=== PATIENT | female | born 1950 | race Caucasian/White ===

== ENCOUNTER → 2024-01-10 08:45 | Outpatient (CLI) | payer MEDICARE, OTHER, SELFPAY ==
--- NOTE | 2024-01-10 09:30 | EKG_ITS ---
[address] [id number] [place] [address] Test Date: 2024-01-10 Pat Name: Fabiana Delgado Department: Room: Gender: Female Digital Marketing Officer: : 1950 Requested By: Order Number: [id number] Reading MD: Davin Davis Measurements Intervals [place] Rate: 69 P: 63 [place]: 164 QRS: 45 QRSD: 72 T: 41 QT: 372 QTc: 398 Interpretive Statements Normal sinus rhythm Electronically Signed On 01-10-2024 16:21:34 PDT by Davin Daivs
[2024-01-10 09:56] LABS: Add Manual Diff / Slide Review NO; Basophils Absolute Auto 0 /uL (0-100); Basophils Percent Auto 0.8 % (0-2); Eosinophils Absolute Auto 200 /uL (0-450); Eosinophils Percent Auto 3.4 % (2-4); Hematocrit 39.9 % (36-46); Hemoglobin 13.3 g/dL (12.0-16.0); Lymphocytes Absolute Auto 1800 /uL (1100-4500); Lymphocytes Percent Auto 33.8 % (25-40); Mean Corpuscular HGB Conc 33.4 % (30-36); Mean Corpuscular Hemoglobin 31.1 PG (26-34); Mean Corpuscular Volume 93.2 fL (80-100); Monocytes Absolute Auto 500 /uL (0-900); Monocytes Percent Auto 8.9 % (3-14); Neutrophils Absolute Auto 2800 /uL (1500-7000); Neutrophils Percent Auto 53.1 % (50-75); Platelet Count 204 X10^3/uL (150-400); Red Blood Cell Count 4.28 X10^6/uL (4.0-5.2); White Blood Cell Count 5.3 X10^3/uL (4.5-11.0)
[2024-01-10 10:13] LABS: BUN Creatinine Ratio 20.2 (6-22); Blood Urea Nitrogen 19 mg/dL (7-17); Calcium 10.1 mg/dL (8.4-10.2); Carbon Dioxide 31 mmol/L (22-32); Chloride 105 mmol/L (98-107); Estimated Glomerular Filt Rate > 60 mL/min (>60); Glucose 92 mg/dL (80-110); HEMOLYSIS < 15 (0-50); Potassium 4.4 mmol/L (3.4-5.1); Sodium 139 mmol/L (137-145)
== END ==
LOC: RESP 08:51
PROVIDERS: PCP Physician Assistant Medical; Referring Provider Orthopaedic Surgery; Visit Provider Orthopaedic Surgery
DX: Z01.818 Encounter for other preprocedural examination (principal); Z01.812 Encounter for preprocedural laboratory examination
CPT/HCPCS: 36415; 80048; 85025; 93005

== ENCOUNTER 2024-01-16 11:12 | Day surgery (SDC) | payer MEDICARE, OTHER, SELFPAY ==
[2024-01-14 08:46] VITALS: BMI 26.4
[2024-01-16] VITALS (14 sets, daily range): BP systolic 98–169; BP diastolic 48–91; PULSE 18–91; RESP 13–18; TEMP 36.2–37.8; O2SAT 93–100; BMI 26.4; BMI 27.9
--- NOTE | 2024-01-16 | DI.RAD.S_ITS ---
PROCEDURE: XR SHOULDER RT MIN 2V INDICATIONS: RIGHT PROXIMAL HUMERUS SURGERY TECHNIQUE: Intraoperative views of the shoulder were acquired. COMPARISON: Ailin Ringoes KELLY Perez, XR SHOULDER 1 VIEW RIGHT, 11/13/2023, 15:55. FINDINGS: Bones: Intraoperative images during ORIF of a proximal humeral fracture. Alignment is improved and hardware appears intact. IMPRESSION: Intraoperative images during ORIF of a proximal humeral fracture. Alignment is improved and hardware appears intact. Dictated by: Billy Turner M.D. on 01/16/2024 at 17:15 Approved by: Billy Turner M.D. on 01/16/2024 at 17:15
--- NOTE | 2024-01-16 12:29 | PM.PREOP ---
Pre-operative Note Interval Note History & Physical reviewed/Exam performed by Physician: Yes Changes to H&P: No
[2024-01-16] MEDS: LACTATED RINGERS 1,000 ML 42 ML IV (12:30)
[2024-01-16] MEDS: CEFAZOLIN 2 GM/100 ML PREMIX 100 ML IV ×3 (13:00→23:13)
[2024-01-16] MEDS: TRANEXAMIC ACID 1,000 MG VIAL 1000 MG INJ (13:05)
--- NOTE | 2024-01-16 13:10 | SUR.OPER ---
Beach chair with Maquet shoulder positioner. Lower body on padded OR bed. Head in foam padded head cradle, secured with straps. Non-operative arm secured <90 degrees abduction. Pillow under knees. Safety belt at thigh. Cloth tape over blanket over lower legs.
[2024-01-16] MEDS: BUPIVACAINE 0.25% (PF) 30 ML, EPINEPHrine 0.15 MG INJ (13:15)
--- NOTE | 2024-01-16 16:44 | PM.OP.1 ---
Operative Date/Time/Diagnoses Date of procedure: 01/16/24 Time of procedure: 16:44 Pre-op diagnosis: Right proximal humerus nonunion Post-op diagnosis: same Procedure & Clinicians Procedure: 1. ORIF right proximal humerus nonunion 2. Operative fixation midshaft humerus fracture Same procedure as scheduled: No Indications: Indications: This is a 73-year-old female who sustained a fall hurting a proximal humerus fracture that was treated nonoperatively. After over 6 months she developed a nonunion. We discussed operative and nonoperative treatment options. Her options include continued conservative management, ORIF and a reverse total shoulder arthroplasty. After careful consideration she wished to go forward with operative fixation. Risks and benefits of surgery were discussed again including the risk of infection, damage to internal structures, bleeding, nerve injury, instability, need for revision surgery, blood clots, anesthesia and . No guarantees were made regarding outcomes. Patient expressed understanding and accepted these risks and wished to go forward with surgery and consent was signed. Surgeon: Abraham Umanzor Medicaid Business Analyst: Jennifer Julian Anesthesia Type: General Operative Notes Findings: Findings: Three-part proximal humerus fracture including the greater tuberosity and surgical neck Closure Type: primary Specimen(s): none sent Prosthetic devices, grafts, tissues, transplants, or devices: Implants: Acumed proximal humerus locking plate Serrano and Nephew 3.5 mm small frag plate, 8 hole Estimated Blood Loss (mL): 200 Blood products transfused: none Procedure in detail: Patient was seen in the preoperative holding area. The left upper extremity was examined and marked with my initials. We again went over the risks and benefits of surgery and consent was signed. The patient was brought back to the operating room and placed in a beach chair position. All bony prominences were padded. 2 g of Ancef and 1g of TXA were given. The left upper extremity was prepped and draped in the standard sterile fashion. A time-out was then performed in my initials were again confirmed on the left upper extremity. A standard deltopectoral approach was performed. The cephalic vein was encountered and moved lateral and protected throughout the remainder of the case. The clavipectoral fascia was incised and the conjoined tendon was retracted medially. The subacromial space and deltoid were freed of all adhesions. The axillary nerve was identified and protected through the entirety of the procedure. At this point it was noted that there was a definitive proximal humerus fracture nonunion. The fracture site was debrided. Fracture was reduced and held in place. An Acumed proximal humeral locking plate was then fashioned and fixed to the bone just lateral to the bicipital groove with multiple locking screws in the proximal head and bicortical screws in the humeral shaft. DBM and bone graft was placed into the space between the shaft and the humerus and impacted. Shoulder was then taken through range of motion under multiple fluoroscopic views to confirm adequate hardware placement and fracture reduction, unfortunately during internal rotation, there was a fracture of the humeral shaft at the level of the plate. This reason, the incision was extended into an anterior aggregate approach between the deltoid and the pack insertion retracting the biceps medially and splitting the brachialis. An 8 hole small frag 3.5 mm plate was then selected and placed while the fracture was held reduced with a reduction clamp. For proximal and 3 distal screws were placed. Screw lengths and fracture reduction was assessed with fluoroscopy. Wounds were thoroughly irrigated. The brachialis was closed over plate with Ethibond The skin were then closed with 2-0 Vicryl and james. Sterile dressings were placed the patient was then brought to the postanesthesia care unit. Assisting participation: This operation could not have been safely performed (without compromising the technical results or length of the procedure) without the assistance of a skilled assembler surgical garment. The assembler surgical garment was medically necessary for proper positioning, retraction and manipulation of instruments, proper exposure, graft prep, and manipulation of tissue. Complications: none Post-operative Condition: stable Disposition: PACU Plan for aftercare: Postoperatively: Sling for comfort for 2 weeks then begin gentle rxbqa-fr-[id number] exercises with physical therapy. Aquacel dressing to remain on for 2 weeks. This will be removed in clinic as well as the underlying james. Okay to shower with soap and water running over top of the dressing. NOTE: If water gets underneath the dressing, please remove the dressing and replace with clean dry 4x4s.
[2024-01-16] MEDS: ONDANSETRON 4 MG/2 ML INJ IV (16:55)
[2024-01-16] MEDS: LACTATED RINGERS 1,000 ML 100 ML IV (18:23)
[2024-01-16] MEDS: ASPIRIN EC 81 MG TABLET PO (21:00)
[2024-01-16] MEDS: IBUPROFEN 400 MG TABLET PO ×2 (21:00→23:13)
[2024-01-16] MEDS: DOCUSATE 100 MG CAPSULE PO (21:01)
[2024-01-16] MEDS: ATORVASTATIN 20 MG TABLET 40 MG PO (21:01)
[2024-01-16] MEDS: ACETAMINOPHEN 325 MG TABLET 650 MG PO (23:13)
[2024-01-17 00:30] VITALS: BP 113/69; PULSE 80; RESP 18; TEMP 37.3; O2SAT 94
[2024-01-17] MEDS: OXYCODONE IR 5 MG TABLET PO ×2 (02:12→06:49)
[2024-01-17] MEDS: IBUPROFEN 400 MG TABLET PO ×2 (05:01→09:40)
[2024-01-17] MEDS: ACETAMINOPHEN 325 MG TABLET 650 MG PO (05:01)
[2024-01-17] MEDS: CEFAZOLIN 2 GM/100 ML PREMIX 100 ML IV (06:02)
[2024-01-17 06:26] LABS: Add Manual Diff / Slide Review NO; Basophils Absolute Auto 100 /uL (0-100); Basophils Percent Auto 0.4 % (0-2); Eosinophils Absolute Auto 0 /uL (0-450); Eosinophils Percent Auto 0.1 % (2-4); Hematocrit 30.6 % (36-46); Hemoglobin 10.3 g/dL (12.0-16.0); Lymphocytes Absolute Auto 2200 /uL (1100-4500); Lymphocytes Percent Auto 17.7 % (25-40); Mean Corpuscular HGB Conc 33.6 % (30-36); Mean Corpuscular Hemoglobin 31.1 PG (26-34); Mean Corpuscular Volume 92.5 fL (80-100); Monocytes Absolute Auto 1300 /uL (0-900); Monocytes Percent Auto 10.7 % (3-14); Neutrophils Absolute Auto 8700 /uL (1500-7000); Neutrophils Percent Auto 71.1 % (50-75); Platelet Count 141 X10^3/uL (150-400); Red Blood Cell Count 3.31 X10^6/uL (4.0-5.2); Red Cell Distribution Width 12.9 % (11.6-14.8); White Blood Cell Count 12.3 X10^3/uL (4.5-11.0)
[2024-01-17 06:38] LABS: BUN Creatinine Ratio 22.6 (6-22); Blood Urea Nitrogen 19 mg/dL (7-17); Calcium 8.9 mg/dL (8.4-10.2); Carbon Dioxide 24 mmol/L (22-32); Chloride 106 mmol/L (98-107); Estimated Glomerular Filt Rate > 60 mL/min (>60); Glucose 119 mg/dL (80-110); HEMOLYSIS 18 (0-50); Potassium 4.1 mmol/L (3.4-5.1); Sodium 134 mmol/L (137-145)
--- NOTE | 2024-01-17 07:01 | PM.DS.1 ---
History of Present Illness History of Present Illness Date Patient Seen: 01/17/24 Time Patient Seen: 07:01 Chief complaint: SDC Narrative: Operative Date/Time/Diagnoses Date of procedure: 01/16/24 Time of procedure: 16:44 Pre-op diagnosis: Right proximal humerus nonunion Post-op diagnosis: same Procedure & Clinicians Procedure: 1. ORIF right proximal humerus nonunion 2. Operative fixation midshaft humerus fracture Same procedure as scheduled: No Indications: Indications: This is a 73-year-old female who sustained a fall hurting a proximal humerus fracture that was treated nonoperatively. After over 6 months she developed a nonunion. We discussed operative and nonoperative treatment options. Her options include continued conservative management, ORIF and a reverse total shoulder arthroplasty. After careful consideration she wished to go forward with operative fixation. Risks and benefits of surgery were discussed again including the risk of infection, damage to internal structures, bleeding, nerve injury, instability, need for revision surgery, blood clots, anesthesia and . No guarantees were made regarding outcomes. Patient expressed understanding and accepted these risks and wished to go forward with surgery and consent was signed. Surgeon: Abraham Umanzor Etl Data Architect: Jennifer Julian Anesthesia Type: General Operative Notes Findings: Findings: Three-part proximal humerus fracture including the greater tuberosity and surgical neck Closure Type: primary Specimen(s): none sent Prosthetic devices, grafts, tissues, transplants, or devices: Implants: Acumed proximal humerus locking plate Serrano and Nephew 3.5 mm small frag plate, 8 hole Estimated Blood Loss (mL): 200 Blood products transfused: none Discharge Providers Provider Discharge Date: 01/17/24 Primary care physician: Radha Meier PA-C Consults: 01/14/24 09:49 Consult to Anesthesiology Routine Comment: Consulting Provider: Anesthesiologist Reason for consultation: EFREN Perez re: Vascular 01/16/24 10:10 Consult to Anesthesiology Routine Comment: Consulting Provider: Anesthesiologist Reason for consultation: Post operative pain managment Has provider been notified: No 01/16/24 16:33 Consult to Discharge Planning Routine Comment: Consult to Occupational Therapy Evaluate & Treat Comment: Physician Instructions: Evaluate and treat Consult to Physical Therapy Evaluate & Treat Comment: Physician Instructions: Evaluate and Treat Discharge provider: Ana Weiss PA-C Summary Hospital Course Discharge Diagnosis: Right proximal humerus nonunion; s/p ORIF of right proximal humerus and midshaft fractures Hospital Course: Ms Delgado's hospital course was unremarkable. On the morning of POD# 1, she was feeling well and wanted to go home. She was eating and voiding without difficulty and her pain was well-controlled with oral medication. She has adequate assistance at home. Exam Vital Signs (past 8 hours): - 01/17/24 00:30 Temperature 99.1 F Pulse Rate 80 Respiratory Rate 18 Blood Pressure 113/69 Pulse Oximetry 94 Oxygen Flow Rate 0 Oxygen Delivery Method Room Air Oxygen Flow Rate 0 Narrative Exam Narrative: Minimal swelling at this time. Aquacel dressing CDI. Pt able to wiggle fingers, move wrist and elbow. Hand warm, sensation to touch intact throughout UE. Objective Labs 01/17/24 06:11 01/17/24 06:11 Labs: Laboratory Results - last 24 hr 01/17/24 06:11 WBC 12.3 H RBC 3.31 L Hgb 10.3 L Hct 30.6 L MCV 92.5 MCH 31.1 MCHC 33.6 RDW 12.9 Plt Count 141 L Neut % (Auto) 71.1 Lymph % (Auto) 17.7 L Tyrrell % (Auto) 10.7 Eos % (Auto) 0.1 L Baso % (Auto) 0.4 Neut # (Auto) 8700 H Lymph # (Auto) 2200 Tyrrell # (Auto) 1300 H Eos # (Auto) 0 Baso # (Auto) 100 Sodium 134 L Potassium 4.1 Chloride 106 Carbon Dioxide 24 BUN 19 H Creatinine 0.84 Estimated GFR > 60 BUN/Creatinine Ratio 22.6 H Glucose 119 H Calcium 8.9 PFSH Medical History (Updated 01/14/24 @ 08:58 by Viry Lo RN) Septicemia due to Escherichia coli (E. coli) Syncope and collapse Carotid artery disease Hypomagnesemia Hypercalcemia CVA (cerebral vascular accident) Vitamin B12 deficiency Anemia Hx of shortness of breath Irregular heartbeat Migraine headache Allergic rhinitis HTN (hypertension) FH: colonic polyps GERD (gastroesophageal reflux disease) Renal calculus DDD (degenerative disc disease) Depression Adnexal mass Tendinitis of shoulder Surgical History (Updated 01/14/24 @ 09:25 by Viry Lo RN) Hx of tonsillectomy History of right-sided carotid endarterectomy (2021) History of bronchoscopy Hx of appendectomy Hx of abdominal surgery Social History household members: spouse Smoking Status: Former smoker alcohol intake: current Discharge Assessment & Plan Assessment and Plan Assessment: Right proximal humerus nonunion; s/p ORIF of right proximal humerus and midshaft fractures Plan of Treatment: Discharge home. Sling for comfort; may have off for hygiene. PT to start in 2 weeks for gentle ROM exercises. Increase ASA to BID x 4 weeks to prevent DVT, then can return to once daily. F/u in office as scheduled. Discharge Plan Discharge Plan Patient Disposition: Home Provider Discharge Comment: Pt has pain med rxs at home. Increase aspirin 81mg to BID x 4 weeks after surgery. Discharge orders & Medications Discharge Orders: Discharge (Order); Ordered 01/17/24 Ordered By: Ana Weiss Prescriptions: Continued atorvastatin 40 mg Tablet 40 mg PO BEDTIME sertraline [Zoloft] 100 mg Tablet 100 mg PO DAILY fexofenadine 180 mg Tablet 180 mg PO DAILY albuterol sulfate [ProAir HFA] 90 mcg/actuation Hfa Aerosol Inhaler 2 puff INHALATION Q4-6H PRN (Reason: Shortness Of Breath) fluticasone propionate [Flonase] 50 mcg/actuation [place],Suspension 2 spray INTRANASAL DAILY Rx Instructions: administer into each nostril aspirin 81 mg Capsule 81 mg PO DAILY Follow up/Referrals: Radha Meier PA-C [Primary Care Provider] - Abraham Umanzor MD [Physician] - As previously scheduled Diet/Activity/Treatments Diet: Diet as Tolerated Activity: Sling for comfort for 2 weeks then begin gentle [id number]-[id number]-[id number] exercises with physical therapy. No weightbearing to right arm. Cold/Heat Therapy: Ice to shoulder as needed for pain. Skin/Wound/Dressing Care Report to your healthcare provider any signs of infection, such as:: chills, fever, night sweats, unusual drainage and unusual redness Dressing: May shower; leave dressing in place until follow up in office. Call the office if the dressing becomes saturated inside. Swelling of the arm from the elbow to the hand is normal and expected; it usually gets worse about a week after surgery and then will start to decrease. Visit Report/Discharge Packet Instructions: DI for Open Reduction Internal Fixation Surgery, DI for Prescription Opioid Use Stand Alone Forms: Patient Portal/API, Surgery Discharge Discharge Data Primary Care Provider: Radha Meier Attending Provider: Abraham Umanzor Quality VTE Deep Vein Thrombosis/Pulmonary Embolism Present on Admission: No
[2024-01-17 08:55] VITALS: BP 124/56; PULSE 74; RESP 17; TEMP 36.9; O2SAT 94
--- NOTE | 2024-01-17 09:14 | PC.NURSE ---
Patients blood pressure down to 66/35, and she had an emesis soon after. She was working and transferring with O.T. Blood pressure rechecked and up to 119/61. EFREN Perez Beh aware of situation, awaiting reply. She is back to bed and is resting comfortably. R.total shoulder dressing aquacel is cdi with patients r.shoulder sling in place.
--- NOTE | 2024-01-17 09:17 | OT.IP.EVAL ---
Current Diagnoses Other nondisplaced fracture of upper end of left humerus, initial encounter for closed fracture (01/16/24) Surgery Performed Operation Date: 01/16/24 12:45 Actual Procedures p Operative fixation right proximal humerus, nonunion and humerus shaft fracture(Right) - Abraham Umanzor MD Past Medical History (Last Updated 01/14/24 @ 08:58 by Viry Lo, RN) Adnexal mass Allergic rhinitis Anemia Carotid artery disease CVA (cerebral vascular accident) DDD (degenerative disc disease) Depression FH: colonic polyps GERD (gastroesophageal reflux disease) HTN (hypertension) Hx of shortness of breath Hypercalcemia Hypomagnesemia Irregular heartbeat Migraine headache Renal calculus Septicemia due to Escherichia coli (E. coli) Syncope and collapse Tendinitis of shoulder Vitamin B12 deficiency Surgical History (Last Updated 01/14/24 @ 09:25 by Viry Lo, RN) History of bronchoscopy History of right-sided carotid endarterectomy (2021) Hx of abdominal surgery Hx of appendectomy Hx of tonsillectomy Occupational Therapy Inpatient Evaluation/Re-Eval M1 PT/OT-IP Prior Functional Status Start: 01/17/24 10:38 Freq: NEEDED Status: Active Protocol: Document 01/17/24 10:39 [facility] (Rec: 01/17/24 11:04 [facility] [id number]) Medical Review Prior Functional Status Communication Independent Mobility and Gait Independent Activities of Daily Living and IADL's Independent and pt's to assist for IADL needs as needed. Prior Functional Level (Other details) Pt has a fall in April and treated non operatively and never healed and therefore now s/P ORIF Right proximal humerus Social History Household Members spouse Living Arrangements House Number of Floors (Floors) One Floor Number of Stairs To Enter/Railing? No steps to enter. Home Environment High Toilet,Walk in Shower Home Equipment Shower Seat with Backrest,Hand Held Shower Additional Social History Comment Pt has suction cup grab bar that she can use if needed. M2 OT-IP Current Condition Start: 01/17/24 10:38 Freq: Status: Active Protocol: Document 01/17/24 10:39 [facility] (Rec: 01/17/24 11:04 [facility] [id number]) Occupational Therapy Current Condition Current Condition Evaluation Date 01/17/24 Treatment Diagnosis S/P R ORIF Right Proximal Humerus non union fx Diagnosis Onset Date 01/16/24 Weight Bearing Status Weight Bearing Status Non-Weight Bearing Allowed Weight Bearing Amount (enter % RUE NWB or #) (%) M3 OT- IP Subjective and Pain Start: 01/17/24 10:38 Freq: Status: Active Protocol: Document 01/17/24 10:39 [facility] (Rec: 01/17/24 11:04 [facility] [id number]) OT- Subjective Occupational Therapy Visit Type Type Initial Evaluation Visit Start Time 08:40 Visit Stop Time 09:17 Occupational Therapy Visit Comments Patient Comments Pt agreed to get up. Pt not wanting to wear the abduction pillow on the sling, therefore assist to adjust the strapping for the sling with just the envelop. Sling to be worn for comfort and taken off for hygiene needs. Patient/Caregiver Goals To go home. OT Pain Assessment Pain When Pain Assessed At Rest Pain Present Pain Present Pain Reported Location Right Arm Intensity 4 Scale Used Numeric (0 - 10) M4 OT- IP ADL's Start: 01/17/24 10:38 Freq: Status: Active Protocol: Document 01/17/24 10:39 [facility] (Rec: 01/17/24 11:04 [facility] [id number]) OT [id number] Comments OT Self-Feeding Comments Not at meal time. OT ADL-Grooming General Evaluation Grooming Ability Standby Assistance Areas Needing Assistance Retrieving/Set-up of Grooming Items Comments OT Grooming Comments Able to wash her face after set-up. OT ADL-Oral Care Comments Oral Care Comments Pt able to rinse her mouth out with mouthwash. OT ADL-Dressing General Eval Upper Body Dressing Ability Maximum Assistance Areas Needing Assistance Orthosis/Prosthesis Comments OT Dressing Comments Able to readjust her sling. Spoke on UB dressing needs to dress her RUE while leaning forwards first and take out last. Not able to actually complete getting pt dressed as pt got naueous with emesis. Pt's will be able to assist her at home. OT ADL-Toileting Comments OT Toileting Comments Pt states has already been up to the bathroom earlier. OT ADL-Bathing Comments OT Bathing Comments Suggested to cover the dressing for showering needs. To inspect the bandage to ensure that there is proper sealing. M5 OT- IP IADL's Start: 01/17/24 10:38 Freq: Status: Active Protocol: Document 01/17/24 10:39 [facility] (Rec: 01/17/24 11:04 [facility] [id number]) OT-Instrumental Activities of Daily Living Deficits IADL Deficits Identified Deficits Home Safety Awareness Awareness of Need for Assistance at Home Good Awareness Ability to Problem Solve Emergency Able to Problem Solve Situations Meal Preparation Meal Preparation Caregiver Provides Assist Clinical Applications Specialist Clinical Applications Specialist Caregiver Provides Assist M6 OT- IP Functional Cognition Start: 01/17/24 10:38 Freq: Status: Active Protocol: Document 01/17/24 10:39 [facility] (Rec: 01/17/24 11:04 [facility] [id number]) Cognitive Factors Limiting Selfcare Function Cognitive Ability Level of Alertness Alert Patient Orientation Name,Age,Birthday,Month,Date, Year,Day of Week,Place, Situation Attention Span Ability Capable of Focused Attention, Capable of Sustained Attention Ability to Follow Commands Able to Follow Multi-Step Commands Memory Description No Deficits Noted Safety Awareness No Deficits Noted Cognitive Comments Cognitive Assessment Comments Pt is intact. OT- Vision and Hearing OT- Hearing Assessment OT- Hearing Assessment WFL OT- Vision Assessment Visual Acuity Glasses All The Time Visual Attentiveness WFL Occular Pursuits WFL Visual Convergence WFL M7 OT- IP Mobility and Balance Start: 01/17/24 10:38 Freq: Status: Active Protocol: Document 01/17/24 10:39 [facility] (Rec: 01/17/24 11:04 [facility] [id number]) OT- Bed Mobility Assessment Rolling Level of Assistance Standby Assistance Supine to Sit Supine to Sit Assist Standby Assistance OT-Transfer Assessment Sit to and From Stand Sit to and from Stand Standby Assistance Transfers Transfer Ability Standby Assistance Technique Transfer Destination Bed,Chair Transfer Technique Stand Step Pivot Comments Mobility Comments SBA without use of a device at this time. BP after up 88/51, sitting 94/49, 99/46, 66/35- and then had emesis, and reclined BP 119/61 and sitting 112/55 and feeling better. Nursing notified. OT- Balance Assessment Sitting Balance and Reactions Static Sitting Balance Ability Normal Dynamic Sitting Balance Ability Normal Standing Balance and Reactions Static Standing Balance Ability Normal Dynamic Standing Balance Ability Good M8 OT- IP Objective Assessments Start: 01/17/24 10:38 Freq: Status: Active Protocol: Document 01/17/24 10:39 [facility] (Rec: 01/17/24 11:04 [facility] [id number]) OT Gross Range of Motion Upper Extremity Range of Motion Assessment Right Impaired ROM Impairments Able to go over exercises for pt for her right hand , elbow and for shoulder retraction. OT Strength Upper Extremity Strength Assessment Right Impaired OT- Coordination Assessment Comments Coordination Comments Pt able to move her right hand . M9 OT- IP Assessment and Plan Start: 01/17/24 10:38 Freq: Status: Active Protocol: Document 01/17/24 10:39 [facility] (Rec: 01/17/24 11:04 [facility] [id number]) OT Summary Assessment and Plan Potential Rehabilitation Potential Excellent Analytic Complexity at Evaluation Low Summary OT Impairments Pain,Dressing,Bathing,Shower Transfers Progress Towards Goals Progressing Toward Goals Assessment Summary Pt low complexity and main barriers are pain, low BP and having emesis after breakfast, and will need assist for sling management needs. Pt sling to be worn per comfort and RUE NWB. Pt to go home when medically stable. Goals Dressing Goal Standby Assistance Bathing Goal Standby Assistance Days to Meet Goals 1 Frequency of Treatment Frequency Of Treatment Once a Day Treatment Plan OT Treatment Plan ADL Training,Functional Mobility,Patient/Family Education,Discharge Planning Discharge Recommendations OT Discharge Recommendations Home with Assistance, outpt PT Transportation Needs at Discharge Private Vehicle
--- NOTE | 2024-01-17 09:20 | PT.IIE ---
Current Diagnoses Other nondisplaced fracture of upper end of left humerus, initial encounter for closed fracture (01/16/24) Surgery Performed Operation Date: 01/16/24 12:45 Actual Procedures p Operative fixation right proximal humerus, nonunion and humerus shaft fracture(Right) - Abraham Umanzor MD Surgical History (Last Updated 01/14/24 @ 09:25 by Viry Lo, RN) History of bronchoscopy History of right-sided carotid endarterectomy (2021) Hx of abdominal surgery Hx of appendectomy Hx of tonsillectomy Medical History (Last Updated 01/14/24 @ 08:58 by Viry oL, FABIANO) Adnexal mass Allergic rhinitis Anemia Carotid artery disease CVA (cerebral vascular accident) DDD (degenerative disc disease) Depression FH: colonic polyps GERD (gastroesophageal reflux disease) HTN (hypertension) Hx of shortness of breath Hypercalcemia Hypomagnesemia Irregular heartbeat Migraine headache Renal calculus Septicemia due to Escherichia coli (E. coli) Syncope and collapse Tendinitis of shoulder Vitamin B12 deficiency Physical Therapy Inpatient Evaluation/Re-Eval M1 PT/OT-IP Prior Functional Status Start: 01/17/24 12:36 Freq: NEEDED Status: Active Protocol: Document 01/17/24 09:20 AB (Rec: 01/17/24 12:52 AB [id number]) Medical Review Prior Functional Status Medical History Reviewed Yes Communication able to make needs known Mobility and Gait pt stated that she is independent with all mobilities and ambulation without AD Activities of Daily Living and IADL's per OT note: Indepedent and pt 's to assist for IADL needs as needed. Social History Household Members spouse Living Arrangements House Number of Floors (Floors) One Floor Number of Stairs To Enter/Railing? no steps to enter Home Environment High Toilet,Walk in Shower Home Equipment Straight Cane,Shower Seat with Backrest,Grab Bars In Shower M2 PT-IP Current Condition Start: 01/17/24 12:36 Freq: NEEDED Status: Active Protocol: Document 01/17/24 09:20 AB (Rec: 01/17/24 12:52 AB [id number]) Physical Therapy Current Condition Current Condition Evaluation Date 01/17/24 Treatment Diagnosis R proximal humeral fx s/p ORIF ; difficulty in walking Onset Date 01/16/24 M3 PT-IP Subjective Start: 01/17/24 12:36 Freq: NEEDED Status: Active Protocol: Document 01/17/24 09:20 AB (Rec: 01/17/24 12:52 AB [id number]) Subjective Physical Therapy Visit Type Type Initial Evaluation Visit Start Time 09:20 Visit Stop Time 10:47 Number of STRIP MACHINE TENDER Visits 0 Physical Therapy Visit Comments Patient Comments agreeable to do PT Therapy Pain Assessment Pain When Pain Assessed At Rest Pain Present Pain Present Pain Reported Location Right Shoulder Intensity 1 Pain Management Techniques Apply Cold,Distraction, Modification of Treatment,Re- positioning,Timing of Activity with Medications M4 PT-IP Mobility and Gait Start: 01/17/24 12:36 Freq: NEEDED Status: Active Protocol: Document 01/17/24 09:20 AB (Rec: 01/17/24 12:52 AB [id number]) PT-Bed Mobility Assessment Supine to Sit Supine to Sit Standby Assistance PT-Transfer Assessment Sit to and From Stand Sit to and from Stand Standby Assistance Equipment Transfer Assistive Device None Orthotic/Prosthetic Devices or Brace: Yes Transfer Ability Level of Assist Standby Assistance Comments Mobility Comments pt supine in bed and stated that she is tired and just finished with OT. obtained PLOF and home set up and pt agreed for PT to check back later. checked back on pt and pt agreeable to do PT. reviewed shoulder precautions and NWB. BP in supine: 132/63. pt completed supine to sit SBA. able to sit on EOB SBA. BP: 132/56. no c/o dizziness. completed sit to stand SBA. BP in standin/58. initially pt feels on but after a few minutes of standing c/o blurry vision. pt was able to step transfer to chair without AD SBA. BP checked: 119/52. pt rested and stated that she feels fine . completed sit to stand from chair SBA and ambulated in room without AD ~ 30 ft. pt requested to go back to bed. sit to supine SBA. BP in supine: 125/56. positioned pt in bed. call light and table placed within reach. Gait Assessment Gait Gait Assistance Required: Standby Assistance Distance (Feet) 30 Able to Maintain Weight Bearing Status Yes During Gait Assistive Devices Assistive Device None Orthotic/Prosthetic Devices or Brace: Yes Gait Deviations General Gait Pattern Decreased Stride Length, Decreased Feet Clearance Factors Limiting Gait Function Factors Limiting Gait Function Decreased Activity Tolerance, Limited Range of Motion,Pain PT-Balance Assessment Sitting Balance and Reactions Static Sitting Balance Ability Normal Dynamic Sitting Balance Ability Normal Standing Balance and Reactions Static Standing Balance Ability Good Dynamic Standing Balance Ability Good Device Used without AD M5 PT-IP Objective Assessments Start: 01/17/24 12:36 Freq: NEEDED Status: Active Protocol: Document 01/17/24 09:20 AB (Rec: 01/17/24 12:52 AB [id number]) Orientation Orientation/Cognition Level of Alertness Alert Orientation Name,Place,Situation Language Function Ability No Deficits Noted Safety Awareness Decreased Safety Awareness Memory Description No Deficits Noted Gross Range of Motion Lower Extremity ROM Assessment Within Functional Limits Strength Lower Extremity Strength Assessment Within Functional Limits Sensation Assessment Sensation Gross Sensation WNL Muscle Tone Muscle Tone WNL Yes M6 PT-IP Treatment Start: 01/17/24 12:36 Freq: NEEDED Status: Active Protocol: Document 01/17/24 09:20 AB (Rec: 01/17/24 12:52 AB [id number]) Physical Therapy Treatment Education Education Provided Precautions,Weight Bearing Status,Post-Op Packet,Safety M7 PT-IP Assessment and Plan Start: 01/17/24 12:36 Freq: NEEDED Status: Active Protocol: Document 01/17/24 09:20 AB (Rec: 01/17/24 12:52 AB [id number]) PT Summary Assessment and Plan Potential Rehabilitation Potential Fair Status of Condition at Evaluation Evolving Summary Impairments Pain,ROM,Strength,Balance, Coordination,Bed Mobility, Transfers,Gait,Activity Tolerance Assessment Summary pt is a 73 y/o F who had a fall and sustained a R proximal humeral fx. pt initially did not have sx and just had conservative tx but had a non union of fx and underwent R proximal humeral ORIF. Assumed NWB on RUE. pt on a sling and per ortho MD, sling form comfort and pt can start gentle ROM. pt requiring SBA with mobility but unable to tolerate much due to decrease in BP. pt plans to go home and spouse to assist. will continue to assess. Goals Bed Mobility Goal Independent Transfer Goal Independent Gait Goal Independent Gait Distance 300 Days to Meet Goals 5 Frequency of Treatment Frequency Of Treatment Once a Day Treatment Plan Physical Therapy Treatment Plan Bed Mobility Training,Transfer Training,Gait Training, Therapeutic Exercise,Balance Retraining,Post Op Education, Discharge Planning,Hot or Cold Pack,Neuromuscular Re-ed, Coordination Retraining,Manual Therapy Precautions Brace sling for comfort: RUE Weight Bearing Status Weight Bearing Status Non-Weight Bearing Allowed Weight Bearing Amount (enter % RUE: NWB or #) (%) Recommendations To Nursing Amount of Assist Needed 1 Person Assist Discharge Recommendations PT Discharge Recommendations Home with Assistance, Outpatient PT Transportation Needs at Discharge Private Vehicle
[2024-01-17] MEDS: ASPIRIN EC 81 MG TABLET PO (09:40)
[2024-01-17] MEDS: LORATADINE 10 MG TABLET PO (09:40)
[2024-01-17] MEDS: SERTRALINE 50 MG TABLET 100 MG PO (09:40)
[2024-01-17] MEDS: DOCUSATE 100 MG CAPSULE PO (09:40)
--- NOTE | 2024-01-17 11:42 | CM.DANOTE ---
Initial DCP Assessment Note Pt is a 73 yo female, resident of [place] , now POD#1 from ORIF and a reverse total shoulder arthroplasty; original fall and fx 6 mo ago, treated non-operatively. PCP: Radha Meier Payer: [facility] Reviewed chart, pt discussed in multidisciplinary rounds this morning. Therapy has cleared pt for return home w/family to assist and pt has planned for home, DC order from Ortho has already been initiated this morning. No barriers identified at this time to patient's safe discharge home w/family to assist; close outpatient f/u recommended. CM team will plan to follow clinical course closely in case any DC needs or concerns arise. SOCRATES Jeffery Discharge Planning/Care Management CM Discharge Assessment Start: 01/17/24 11:39 Freq: Status: Active Protocol: Document 01/17/24 11:39 LEXII (Rec: 01/17/24 11:42 LEXII [id number]) Discharge Planning Assessment Assigned Hotel Dining Room Cashier SOCRATES Zhu DPOA/Assigned Designee Name Bhumika Delgado, spouse Contact Information [phone] Advance Directives? Yes Advance Directives on File No History Provided By Patient,Medical Record Prior Living Arrangements House Household Members spouse Type of transporation used prior to Drives own vehicle admit Independent with ADL's Yes Is patient alert and oriented? Yes Patient/Family Preference OP PT Therapy Barriers to Discharge No Discharge Plan Home Transportation Arrangement Spouse Referrals Initiated None needed
== END 2024-01-17 13:40 | disposition home or self-care (01) ==
LOC: OR 16:41 → AC 16:43
PROVIDERS: PCP Physician Assistant Medical; Referring Provider Orthopaedic Surgery; Visit Provider Orthopaedic Surgery
PROC: (CPT 24430; principal; 2024-01-16 12:45)
DX: S42.254K Nondisplaced fracture of greater tuberosity of right humerus, subsequent encounter for fracture with nonunion (principal); W19.XXXA Unspecified fall, initial encounter; G89.18 Other acute postprocedural pain
CPT/HCPCS: 24430; 36415; 64450; 73030; 76000; 80048; 85025; 97162; 97165; 97530; 97535; C1713; J0171; J0690; J1100; J2405; J2704; J3010